=== PATIENT | male | born 1995 | race African-American/Black ===

== ENCOUNTER 2019-02-08 08:53 | Emergency (ER) | payer SELFPAY ==
[2019-02-08 09:02] VITALS: BP 145/82; PULSE 82; TEMP 97.8; BMI 34.7
--- NOTE | 2019-02-08 09:55 | PDOC ---
History of Present Illness - General Chief Complaint: Rash Stated Complaint: RASH Time Seen by Provider: 02/08/19 09:02 History Source: Patient - History of Present Illness Timing/Duration: reports: other Location: reports: extremities, face Past History - Past Medical History Allergies/Adverse Reactions: Allergies Allergy/AdvReac Type Severity Reaction Status Date / Time No Known Allergies Allergy Verified 02/08/19 09:00 Home Medications: Ambulatory Orders Cephalexin [Keflex] 500 mg PO Q6H #28 capsule 02/08/19 Mupirocin Ointment [Bactroban 2% Ointment -] 1 applic TP TID #1 applic 02/08/19 COPD: No CHF: No DVT: No Dementia: No - Immunization History Immunization Up to Date: Yes - Psycho Social/Smoking Cessation Hx Smoking History: Never smoked Information on smoking cessation initiated: No Hx Alcohol Use: No Drug/Substance Use Hx: No Review of Systems - Review of Systems Constitutional: No: Chills, Fever Integumentary: Yes: Rash. No: Pruritus *Physical Exam - Vital Signs Last Vital Signs Temp Pulse Resp BP Pulse Ox 97.8 F 82 18 145/82 99 02/08/19 09:00 02/08/19 09:00 02/08/19 09:00 02/08/19 09:00 02/08/19 09:00 - Physical Exam General Appearance: Yes: Appropriately Dressed. No: Apparent Distress HEENT: positive: Normal Voice Neck: positive: Supple Respiratory/Chest: negative: Respiratory Distress Integumentary: positive: Dry, Warm, Other (papules and pustules in brearded area of face c/w folliculitis, unable to appreciate erythema, +lichenification to volar R forearm w/ dry, scaly, patches to throughut forearm ) Neurologic: positive: Fully Oriented, Alert, Normal Mood/Affect Medical Decision Making - Medical Decision Making 02/08/19 10:06 24-year-old male, endorses history of eczema mostly to upper and lower extremities, seen by his senior qa automation engineer and told to take steroids but patient reports that he has been non-compliant and now presents with acute flare of his eczema mostly to his right upper extremity at this time and has since started using steroid. Patient also complaining of rash to bearded area x2 days that is not consistent with his eczema. see exam Folliculitis barbae -Dc w/ both topical and oral abx Acute eczema flare Currently using steroid prescribed by derm -To continue meds and f/u with derm Discharge - Discharge Information Problems reviewed: Yes Clinical Impression/Diagnosis: Folliculitis Eczema Qualifiers: Eczema type: unspecified Qualified Code(s): L30.9 - Dermatitis, unspecified Condition: Good Disposition: HOME - Additional Discharge Information Prescriptions: Cephalexin [Keflex] 500 mg PO Q6H #28 capsule Mupirocin Ointment [Bactroban 2% Ointment -] 1 applic TP TID #1 applic - Follow up/Referral - Patient Discharge Instructions Patient Printed Discharge Instructions: Folliculitis Additional Instructions: Take medications as prescribed and continue to follow-up with your senior qa automation engineer - Post Discharge Activity Work/Back to School Note: Back to Work
== END 2019-02-08 09:59 | disposition home or self-care (01) ==
LOC: JERFT 08:53
DX: L73.8 Other specified follicular disorders (principal); L30.9 Dermatitis, unspecified
CPT/HCPCS: 99281-25